=== PATIENT | male | born 1990 | race Caucasian/White ===

== ENCOUNTER 2016-08-19 08:28 | Emergency (ER) | payer MEDICAID ==
[~2016-08-19] VITALS: Ht 175.3 cm; Wt 74.8 kg
[2016-08-19 08:38] VITALS: BP 126/80
== END 2016-08-19 11:02 | disposition home or self-care (01) ==
LOC: ER 08:28
DX: S60.211A Contusion of right wrist, initial encounter (principal); W19.XXXA Unspecified fall, initial encounter; Y93.89 Activity, other specified; Y99.8 Other external cause status; Y92.89 Other specified places as the place of occurrence of the external cause
CPT/HCPCS: 73110

== ENCOUNTER 2016-10-08 16:16 | Emergency (ER) | payer MEDICAID ==
[~2016-10-08] VITALS: Ht 175.3 cm; Wt 77.1 kg
[2016-10-08 18:10] VITALS: BP 134/70
[2016-10-08 19:07] LABS: Basophils # (auto) 0 uL; Basophils % (auto) 0.5 % (0.0-2.0); Eosinophils # (auto) 0.1 uL; Eosinophils % (auto) 1.8 % (0.0-7.0); Hematocrit 47.5 % (41.0-53.0); Hemoglobin 16.1 g/dL (13.5-17.5); Lymphocytes # (auto) 2.3 uL; Lymphocytes % (auto) 29.3 % (10.0-50.0); Mean Corpuscular Hgb Conc. 33.9 g/dL (32.0-36.0); Mean Corpuscular Volume 91.5 fL (80.0-100.0); Monocytes # (auto) 0.6 uL; Monocytes % (auto) 7.8 % (0.0-12.0); Neutrophils # (auto) 4.8 uL; Neutrophils % (auto) 60.6 % (37.0-80.0); Platelet Count (auto) 328 10^3/uL (140-450); Red Cell Distribution Width 12.9 % (11.6-16.0); White Blood Cell 7.9 10^3/uL (4.4-10.8)
[2016-10-08 19:22] LABS: Urine Bilirubin Negative (Negative); Urine Blood Negative /uL (Negative); Urine Color Yellow (Yellow); Urine Glucose Normal (Normal); Urine Ketone Negative (Negative); Urine Nitrite Negative (Negative); Urine RBC 1 /hpf (0 - 3); Urine pH 6.5 (5.0-8.0)
[2016-10-08 19:41] LABS: Albumin 4.6 g/dL (3.4-5.0); Anion Gap 11 (5-15); Aspartate Aminotransferase 17 U/L (15-37); BUN/Creatinine Ratio 12.3; Blood Urea Nitrogen 13 mg/dL (7-18); Calcium 8.4 mg/dL (8.5-10.1); Carbon Dioxide 26 mmol/L (21-32); Chloride 103 mmol/L (98-107); GFR African American 108 mL/min; GFR Non-African American 89 mL/min; Glucose 82 mg/dL (74-106); Potassium 3.3 mmol/L (3.5-5.1); Sodium 140 mmol/L (136-145)
[2016-10-08 19:44] LABS: Alkaline Phosphatase 78 U/L (45-117); Bilirubin, Total 0.6 mg/dL (0.2-1.0); Total Protein 7.9 g/dL (6.4-8.2)
[2016-10-08 22:04] LABS: B-Type Natriuretic Peptide 0.01 pg/mL (0-100)
[2016-10-08 22:07] LABS: Temperature: 22.3 C (20.0-25.0)
== END 2016-10-08 19:48 | disposition home or self-care (01) ==
LOC: ER 16:46
DX: G89.29 Other chronic pain (principal); R51 Headache; M25.531 Pain in right wrist
CPT/HCPCS: 36415; 80053; 80320; 81001; 83880; 85025; 99284; G0434